=== PATIENT | male | born 1990 | race Caucasian/White ===

== ENCOUNTER 2019-10-14 10:02 | Outpatient (REF) | payer MEDICAID, SELFPAY ==
[2019-10-14 22:16] LABS: Abs Immature Grans 0.01 k/cumm (0.0-0.09); Absolute Basophil Count 0.02 k/cumm (0.0-0.2); Absolute Eosinophil Count 0.03 k/cumm (0.0-0.7); Absolute Monocyte Count 0.36 k/cumm (0.11-0.7); Absolute Neutrophil Count 2.29 k/cumm (1.2-6.7); Basophils % 0.5; Eosinophils % 0.7; HCT 42.7 % (40.0-50.0); HGB 14.3 g/dL (13.5-17.5); Immature Grans % 0.2 %; Lymphocytes % 38.5; Mean Corp. HGB Concentration 33.5 g/dL (32.0-36.0); Mean Corpuscular Hemoglobin 31.1 pg (27.0-33.0); Mean Corpuscular Volume 92.8 fL (80-95); Monocytes % 8.2; Neutrophils % 51.9; Platelet Count 165 x1000/uL (130-400); RBC Distribution Width 12.1 % (11.8-14.1); White Blood Cell Count 4.41 k/cumm (4.4-10.8)
[2019-10-14 23:17] LABS: Ferritin 87 ng/mL (26-388); TSH (W/Ref FT4) 2.98 uIU/mL (0.36-3.74)
[2019-10-16 04:57] LABS: Vitamin D 25 Total 54.2 ng/ml (30-100)
== END 2019-10-14 10:22 ==
LOC: NCHCN 10:02
PROVIDERS: PCP Nurse Practitioner Family; Visit Provider Nurse Practitioner Family
DX: R53.83 Other fatigue (principal)
CPT/HCPCS: 82306; 82728; 84443; 85025

== ENCOUNTER 2021-04-18 16:40 | Outpatient (REF) | payer MEDICAID, SELFPAY ==
[2021-04-18 21:00] LABS: HCT 39.3 % (40.0-50.0); HGB 13.4 g/dL (13.5-17.5); MCHC 34.1 % (32.0-36.0); MPV 11.8 fL (8.0-11.0); Platelet Count 149 10^3/uL (130-400); RBC 4.32 10^6/uL (4.36-5.78); RDW 11.9 % (11.8-14.1); RDW-SD 39.9 fL; WBC 5.16 10^3/uL (4.4-10.8)
[2021-04-18 21:26] LABS: Ferritin 60 ng/mL (26-388); TSH 2.17 uIU/mL (0.36-3.74)
[2021-04-18 22:21] LABS: Vitamin D 25 Total 50.3 ng/mL (30-100)
== END 2021-04-18 16:41 | disposition home or self-care (01) ==
LOC: NCHCN 16:40
PROVIDERS: PCP Nurse Practitioner Family; Visit Provider Family Medicine
DX: R53.83 Other fatigue (principal)
CPT/HCPCS: 82306; 85027; 82728; 84443